=== PATIENT | male | born 1990 | race Caucasian/White ===

== ENCOUNTER 2016-12-25 11:23 | Emergency (ER) | payer MEDICAID ==
[2016-12-25 11:45] VITALS: RESP 16; O2SAT 99
[2016-12-25] MEDS ORDERED: TDAP ADULT 0.5 ML INJ (BOOSTRIX) IM ONE (12:08)
--- NOTE | 2016-12-25 12:09 | EDPHY ---
H & P Time Seen by Provider: 12/25/16 11:45 HPI/ROS: CHIEF COMPLAINT: "My toes are fucking frozen" HISTORY OF PRESENT ILLNESS: 26-year-old male with out-of-date tetanus, homeless , arrives via ambulance complaining of painful plantar aspect of toes bilaterally. States that he has been wearing shoes only intermittently in the past few days and has been snowing intermittently as well. States that he has been walking on snowy and icy surface. He denies other injury. Denies immersion injury. Denies fever chills. Denies nausea or vomiting. REVIEW OF SYSTEMS: A ten point review of systems was performed and is negative with the exception of the items mentioned in the HPI \\ PAST MEDICAL & SURGICAL HISTORY: Homeless. Tetanus out-of-date. SOCIAL HISTORY:homeless. PHYSICAL EXAM (Prior to examination, patient consented to physical exam, hands were washed and my usual and customary physical exam procedures followed) 1) GENERAL: Well-developed, well-nourished, alert and oriented. Sleeping, irritated. 2) HEAD: Normocephalic, atraumatic 3) HEENT: Pupils equal, round, reactive to light bilaterally. Sclera anicteric. 4) NECK: Full range of motion, no meningeal signs. 5) LUNGS: Clear auscultation bilaterally, no wheezes, no rhonchi, no retractions. 6) HEART: Regular rate and rhythm, no murmur, no heave, no gallop. 7) ABDOMEN: No guarding, no rebound, no focal tenderness, 8) MUSCULOSKELETAL: Bilateral upper extremities examined, no signs of infection , no signs of frostbite or gangrene to his fingers. Bilateral lower extremities examined, on the plantar aspect of his bilateral toes see has white colored tissue consistent with frostbite with no evidence of gangrene or infection. No trench foot. 9) BACK: No CVA tenderness, no midline vertebral tenderness, no fluctuance, no step-off, no obvious trauma, no visual or palpable abnormality. 10) SKIN: No rash, no petechiae. 11) Psychiatric: Patient is oriented X 3, there is no agitation. DIFFERENTIAL DIAGNOSIS: in no particular include but limited to frostbite, [place] nip, gangrene, cellulitis Smoking Status: Current every day smoker Constitutional: Initial Vital Signs Temperature (C) 36.4 C 12/25/16 11:23 Heart Rate 76 12/25/16 11:23 Respiratory Rate 16 12/25/16 11:23 Blood Pressure 126/72 H 12/25/16 11:23 O2 Sat (%) 99 12/25/16 11:23 O2 Delivery Mode Room Air Allergies/Adverse Reactions: amoxicillin Allergy (Verified 12/25/16 11:40) Home Medications: Medication Instructions Recorded NK [No Known Home Meds] 12/25/16 MDM/Departure - MDM Medications Given: Discontinued Medications Diphtheria/Tetanus/Acell Pertussis (Boostrix) 0.5 ml IM .ONCE ONE Stop: 12/25/16 12:09 Last Admin: 12/25/16 12:14 Dose: Not Given ED Course/Re-evaluation: Patient's tetanus has been updated. He has been informed that this will require long-term care. The window caser has subsequently consulted, assisted arranging follow-up with [facility] and he will need follow-up with the wound clinic as well. He has been given appointment tomorrow at 10:00 a.m. with the [facility]. He has been given dry socks, we discussed foot hygiene and importance of keeping his feet dry and warm. Usual and customary wound precautions instructions provided. Care of patient under supervision of secondary supervising physician Dr Guillen . - Depart Disposition: Home, Routine, Self-Care Clinical Impression: Frostbite of great toes, bilateral Condition: Good Instructions: Frostbite (ED) Additional Instructions: Please keep your feet warm and dry. If you develop redness, worsening pain, return to the ER. Follow up with [facility]: You have an appointment scheduled for tomorrow at 10:45 AM. Please be on time and bring a list of any/all medications you are taking. Check in at the [facility] inTouch desk. [address] [place] [id number] Referrals: [facility],. [Clinic] - 12/26/16 10:00 am
[2016-12-25 12:55] VITALS: BP 135/70; PULSE 81; TEMP 97.7
== END 2016-12-25 12:57 | disposition home or self-care (01) ==
DX: T33.831A Superficial frostbite of right toe(s), initial encounter (principal); T33.832A Superficial frostbite of left toe(s), initial encounter; F17.200 Nicotine dependence, unspecified, uncomplicated; X58.XXXA Exposure to other specified factors, initial encounter; Y92.89 Other specified places as the place of occurrence of the external cause; Y93.01 Activity, walking, marching and hiking

== ENCOUNTER 2017-04-03 05:08 | Emergency (ER) | payer MEDICAID ==
[~2017-04-03 05:08] MED LIST: PERMETHRIN 5% 60 GM CREAM TP SCH
--- NOTE | 2017-04-03 05:09 | EDPHY ---
H & P HPI/ROS: HPI CHIEF COMPLAINT: Medically cleared for senior living. HISTORY OF PRESENT ILLNESS: This patient 26-year-old male, he presents emergency room by EMS, police for medical clearance for senior living. They brought him in to make sure he does not have lice. Patient states that he has bugs crawling all over him. On head to toe exam I do not see any evidence of scabies or bugs. Specifically I do not see any lice or nits in his hair. He does have some dry dandruf. But no bugs. Past Medical History: Homelessness Past Surgical History: No recent surgery Social History: Homeless, polysubstance abuse Family History: Noncontributory ROS REVIEW OF SYSTEMS: A comprehensive 10 point review of systems is otherwise negative aside from elements mentioned in the history of present illness. Exam Constitutional appears well nontoxic no acute distress triage nursing summary reviewed, vital signs reviewed, awake/alert. Eyes normal conjunctivae and sclera, EOMI, PERRLA. HENT scalp and head exam I do not appreciate any lice or bugs, normal inspection, atraumatic, moist mucus membranes, no epistaxis, neck supple/ no meningismus, no raccoon eyes. Respiratory clear to auscultation bilaterally, normal breath sounds, no respiratory distress, no wheezing. Cardiovascular rate normal, regular rhythm, no murmur, no edema, distal pulses normal. Gastrointestinal soft, non-tender, no rebound, no guarding, normal bowel sounds, no distension, no pulsatile mass. Genitourinary no CVA tenderness. Musculoskeletal no midline vertebral tenderness, full range of motion, no calf swelling, no tenderness of extremities, no meningismus, good pulses, neurovascularly intact. Skin I do not appreciate a bug exposure signs scabies on skin exam, pink, warm , & dry, no rash, skin atraumatic. Neurologic awake, alert and oriented x 3, AAOx3, moves all 4 extremities equally, motor intact, sensory intact, CN II-XII intact, normal cerebellar, normal vision, normal speech. Psychiatric normal mood/affect. Heme/Lymph/Immune no lymphadenopathy. Differential Diagnosis: Includes but is not limited to in a particular order medical clearance for incarceration, bed bug exposure, lice, scabies, other bug exposure Medical Decision Making: Plan for this patient I do not appreciate any signs of infection on exam or infestation of any type bug. I do recommend he showers with warm soapy water. He can be medically cleared for senior living. Source: Patient, Police, EMS - Medical/Surgical History Hx Asthma: No Hx Chronic Respiratory Disease: No Hx Diabetes: No Hx Cardiac Disease: No Hx Renal Disease: No Hx Cirrhosis: No Hx Alcoholism: No Hx HIV/AIDS: No Hx Splenectomy or Spleen Trauma: No Other PMH: bipolar, schizophrenia - Social History Smoking Status: Current every day smoker Allergies/Adverse Reactions: amoxicillin Allergy (Verified 12/25/16 11:40) Home Medications: Medication Instructions Recorded NK [No Known Home Meds] 12/25/16 Departure - Departure Disposition: Home, Routine, Self-Care Clinical Impression: Medical clearance for incarceration Condition: Good Instructions: Normal Exam (ED) Additional Instructions: 1. Medically cleared for senior living Referrals: NONE *PRIMARY CARE P,. [Primary Care Provider] - As per Instructions
[2017-04-03] MEDS ORDERED: PERMETHRIN 5% 60 GM CREAM TP ONE (05:14)
[2017-04-03 05:22] VITALS: BP 144/73; PULSE 88; RESP 16; TEMP 97.5; O2SAT 92
== END 2017-04-03 05:29 | disposition home or self-care (01) ==
DX: Z02.89 Encounter for other administrative examinations (principal); F17.200 Nicotine dependence, unspecified, uncomplicated

== ENCOUNTER 2017-06-18 02:54 | Emergency (ER) | payer MEDICAID ==
--- NOTE | 2017-06-18 02:59 | EDPHY ---
H & P Time Seen by Provider: 06/18/17 02:58 HPI/ROS: HPI CHIEF COMPLAINT: Medical clearance for penitentiary possible lice. HISTORY OF PRESENT ILLNESS: Patient is a 27-year-old male, in police custody in here for medical clearance for penitentiary. They requested the patient be evaluated for possible lice. Patient has no complaints. Resting comfortably no acute distress. Past Medical History: Homelessness, polysubstance abuse Past Surgical History: Denies any recent surgical history Social History: Polysubstance abuse, homeless. Family History: Noncontributory ROS REVIEW OF SYSTEMS: A comprehensive 10 point review of systems is otherwise negative aside from elements mentioned in the history of present illness. Exam Constitutional appears well nontoxic triage nursing summary reviewed, vital signs reviewed, awake/alert. Eyes normal conjunctivae and sclera, EOMI, PERRLA. HENT head exam no evidence of lice. normal inspection, atraumatic, moist mucus membranes, no epistaxis, neck supple/ no meningismus, no raccoon eyes. Respiratory clear to auscultation bilaterally, normal breath sounds, no respiratory distress, no wheezing. Cardiovascular rate normal, regular rhythm, no murmur, no edema, distal pulses normal. Gastrointestinal soft, non-tender, no rebound, no guarding, normal bowel sounds, no distension, no pulsatile mass. Genitourinary no CVA tenderness. Musculoskeletal no midline vertebral tenderness, full range of motion, no calf swelling, no tenderness of extremities, no meningismus, good pulses, neurovascularly intact. Skin pink, warm, & dry, no rash, skin atraumatic. Neurologic awake, alert and oriented x 3, AAOx3, moves all 4 extremities equally, motor intact, sensory intact, CN II-XII intact, normal cerebellar, normal vision, normal speech. Psychiatric normal mood/affect. Heme/Lymph/Immune no lymphadenopathy. Differential Diagnosis: Includes but is not possible bug infestation, bed bugs , lice. Medical Decision Making: Plan for this patient exam and make sure there is no significant bug infestation or lice. Re-evaluation: 0307: I did evaluate the patient. I do not see any evidence of acute bug infestation or lice. He is medically cleared to go to penitentiary. He denies any other complaints. Source: Patient, Police - Medical/Surgical History Hx Asthma: No Hx Chronic Respiratory Disease: No Hx Diabetes: No Hx Cardiac Disease: No Hx Renal Disease: No Hx Cirrhosis: No Hx Alcoholism: No Hx HIV/AIDS: No Hx Splenectomy or Spleen Trauma: No Other PMH: bipolar, schizophrenia - Social History Smoking Status: Current every day smoker Allergies/Adverse Reactions: amoxicillin Allergy (Verified 04/03/17 05:20) Home Medications: Medication Instructions Recorded Permethrin 5% [Elimite 5%] 1 cayetano TOP BID #1 gm 04/03/17 Departure - Departure Disposition: Home, Routine, Self-Care Clinical Impression: Feared condition not demonstrated Condition: Good Instructions: Self-Care Measures with a Chronic Disease (ED) Additional Instructions: 1. Medically cleared for penitentiary.
[2017-06-18 03:05] VITALS: BP 126/73
== END 2017-06-18 03:06 | disposition home or self-care (01) ==
DX: Z71.1 Person with feared health complaint in whom no diagnosis is made (principal); F17.200 Nicotine dependence, unspecified, uncomplicated

== ENCOUNTER 2018-06-04 23:55 | Emergency (ER) | payer MEDICAID ==
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
[2018-06-05 00:22] VITALS: BP 142/86
== END 2018-06-05 00:41 | disposition left against medical advice (07) ==
LOC: EDUNIT#
DX: S09.90XA Unspecified injury of head, initial encounter (principal); Y04.2XXA Assault by strike against or bumped into by another person, initial encounter

== ENCOUNTER 2018-07-24 02:40 | Emergency (ER) | payer MEDICAID | END 2018-07-24 02:50 ==